=== PATIENT | female | born 1945 | race Caucasian/White ===

== ENCOUNTER 2017-05-19 06:56 | Day surgery (SDC) | payer MEDICARE, BC, OTHER ==
[~2017-05-19 06:56] MED LIST: KETOROLAC TROMETHAMINE 0.45% 4 DROP/0.4 ML DROPERETTE OS PRN
[2017-05-19] MEDS ORDERED: CHONDR SU A NA/HYALUR INTRAOC KIT (SURGICARE) ONE (07:07)
[2017-05-19] MEDS ORDERED: LIDOCAINE 1% INJ-PF (10 MG/ML) 30 ML SDV ONE (07:07)
[2017-05-19] MEDS ORDERED: EPINEPHRINE INJ/PF 1 MG/1 ML AMPULE ONE (07:07)
[2017-05-19] MEDS ORDERED: TOBRAMYCIN SULFATE/DEXAMETH OPH OINTMENT 3.5 GM ONE (07:07)
[2017-05-19] MEDS ORDERED: MIDAZOLAM 2 MG/2 ML INJ ONE (07:11)
[2017-05-19] MEDS: TETRACAINE HCL 0.5% OPH SOLN 0.6 ML DROPERETTE OS PRN ×3 (07:15→07:55)
[2017-05-19] MEDS: TROPICAMIDE 1% OPH SOLN 3 ML OS PRN ×3 (07:16→07:39)
[2017-05-19] MEDS: CYCLOPENTOLATE 0.2%/PHENYLEPHRINE 1% OPH SOLN 2 ML OS PRN ×3 (07:16→07:39)
[2017-05-19] MEDS: BESIFLOXACIN HCL 0.6% OPH SUSP 5 ML BOTTLE OS PRN ×3 (07:17→08:11)
[2017-05-19] MEDS ORDERED: ONDANSETRON HCL INJ/PF 4 MG/2 ML SDV ONE (07:42)
== END 2017-05-19 08:50 | disposition home or self-care (01) ==
LOC: SC 06:56
PROVIDERS: ATTEND Ophthalmology
PROC: 08RK3JZ Replacement of Left Lens with Synthetic Substitute, Percutaneous Approach (ICD-10-PCS; principal; 2017-05-19 07:45)
DX: H25.12 Age-related nuclear cataract, left eye (principal); H40.053 Ocular hypertension, bilateral; I10 Essential (primary) hypertension; Z79.82 Long term (current) use of aspirin; Z79.899 Other long term (current) drug therapy
CPT/HCPCS: 66984; V2630; J2250; J3490 ×3; A9270; J0171; J2405; 142

== ENCOUNTER 2017-06-02 10:10 | Day surgery (SDC) | payer OTHER ==
[~2017-06-02 10:10] MED LIST changes: +KETOROLAC TROMETHAMINE 0.45% 4 DROP/0.4 ML DROPERETTE OD PRN; -KETOROLAC TROMETHAMINE 0.45% 4 DROP/0.4 ML DROPERETTE OS PRN
[2017-06-02] MEDS ORDERED: LIDOCAINE 1% INJ-PF (10 MG/ML) 30 ML SDV ONE (10:13)
[2017-06-02] MEDS ORDERED: CHONDR SU A NA/HYALUR INTRAOC KIT (SURGICARE) ONE (10:13)
[2017-06-02] MEDS ORDERED: EPINEPHRINE INJ/PF 1 MG/1 ML AMPULE ONE (10:13)
[2017-06-02] MEDS ORDERED: TOBRAMYCIN SULFATE/DEXAMETH OPH OINTMENT 3.5 GM ONE (10:13)
[2017-06-02] MEDS: TROPICAMIDE 1% OPH SOLN 3 ML OD PRN ×3 (10:31→10:49)
[2017-06-02] MEDS: CYCLOPENTOLATE 0.2%/PHENYLEPHRINE 1% OPH SOLN 2 ML OD PRN ×3 (10:31→10:49)
[2017-06-02] MEDS: BESIFLOXACIN HCL 0.6% OPH SUSP 5 ML BOTTLE OD PRN ×4 (10:32→11:37)
[2017-06-02] MEDS: TETRACAINE HCL 0.5% OPH SOLN 0.6 ML DROPERETTE OD PRN ×3 (10:33→11:19)
[2017-06-02] MEDS ORDERED: MIDAZOLAM 2 MG/2 ML INJ ONE (11:13)
== END 2017-06-02 12:02 | disposition home or self-care (01) ==
LOC: SC 10:10
PROVIDERS: ATTEND Ophthalmology
PROC: 08RJ3JZ Replacement of Right Lens with Synthetic Substitute, Percutaneous Approach (ICD-10-PCS; principal; 2017-06-02 11:15)
DX: H25.11 Age-related nuclear cataract, right eye (principal); Z98.42 Cataract extraction status, left eye; I10 Essential (primary) hypertension; Z79.82 Long term (current) use of aspirin; Z79.899 Other long term (current) drug therapy
CPT/HCPCS: 66984; V2630; J2250; J3490 ×3; A9270; J0171; 142

== ENCOUNTER → 2017-08-05 | Day surgery (SDC) | payer OTHER ==
[~2017-08-05] MED LIST changes: -KETOROLAC TROMETHAMINE 0.45% 4 DROP/0.4 ML DROPERETTE OD PRN; +LIDOCAINE 2% JELLY 5 ML TUBE ONE
== END ==
LOC: END 08:00
PROVIDERS: ATTEND Surgery
DX: K21.9 Gastro-esophageal reflux disease without esophagitis (principal); K22.0 Achalasia of cardia; Z88.5 Allergy status to narcotic agent

== ENCOUNTER → 2019-02-16 | Outpatient (CLI) | payer OTHER ==
--- NOTE | 2019-02-16 13:37 | RADIOLOGY REPORT (SQ) ---
EXAM DESCRIPTION: MRI LUMBAR SPINE WITHOUT COMPLETED DATE/TIME: 02/16/2019 1:09 pm REASON FOR STUDY: M54.5 LOW BACK PAIN M54.5 LOW BACK PAIN COMPARISON: None. TECHNIQUE: Sagittal and Axial imaging includes T1, T2, STIR and gradient echo sequences. Coronal T2/ HASTE imaging. LIMITATIONS: None. FINDINGS: VISUALIZED UPPER ABDOMEN: Limited evaluation. No acute or suspicious findings suggested. SEGMENTATION: No transitional anatomy. The lowest well-developed disc space is labeled L5-S1. ALIGNMENT: Grade 1 anterolisthesis of L5 over S1 VERTEBRAE: Intact. BONE MARROW: Normal. No marrow replacement or reactive changes. DISC SIGNAL: Disc space loss of height at L5-S1. Diffuse decreased T2 weighted intervertebral disc s ignal. POSTERIOR ELEMENTS: Degenerative spondylolysis bilaterally at L5 HARDWARE: None in the spine. CORD AND CONUS: Normal in size and signal intensity. Conus at the L1 level. SOFT TISSUES: No aortic aneurysm seen. No bulky retroperitoneal adenopathy or mass. No paraspinal mas s or fluid. T11-12: No central or foraminal stenosis. Mild bilateral facet hypertrophy. T12-L1: No central or foraminal stenosis. Mild bilateral facet hypertrophy. L1-L2: No central or foraminal stenosis. Mild bilateral facet hypertrophy. L2-L3: No central or foraminal stenosis. Mild bilateral facet hypertrophy. L3-L4: No central or foraminal stenosis. Mild posterior disc bulging, mild bilateral facet hypertrop hy. L4-L5: No central or foraminal stenosis. Mild left facet hypertrophy L5-S1: Grade 1 anterolisthesis of L5 over S1 related to degenerative spondylolysis best shown on axia l image 26 and sagittal image 8. No central stenosis. Mild bilateral foraminal narrowing without ex iting L5 nerve root impingement. SACRUM: There is a right-sided sacral insufficiency fracture paralleling the right sacral ala. This would be amenable to sacroplasty OTHER: No other significant findings. IMPRESSION: Right-sided sacral insufficiency fracture TECHNICAL DOCUMENTATION: JOB ID: [id number] [employer]- All Rights Reserved Reading location - IP/workstation name: [email or web address]
== END ==
LOC: RAD 12:18
PROVIDERS: ATTEND Physician Assistant
DX: M84.48XA Pathological fracture, other site, initial encounter for fracture (principal); M54.5 Low back pain
CPT/HCPCS: 72148

== ENCOUNTER → 2019-02-24 | Outpatient (CLI) | payer OTHER ==
--- NOTE | 2019-02-24 15:07 | RADIOLOGY REPORT (SQ) ---
EXAM DESCRIPTION: CT CHEST WITHOUT COMPLETED DATE/TIME: 02/24/2019 2:55 pm REASON FOR STUDY: R07.89 OTHER CHEST PAIN R07.89 OTHER CHEST PAIN COMPARISON: None. TECHNIQUE: CT scan performed of the chest without intravenous contrast. Images reviewed with lung, soft tissue and bone windows. Reconstructed coronal and sagittal MPR images reviewed. All images st ored on PACS. All CT scanners at this facility use dose modulation, iterative reconstruction, and/or weight based d osing when appropriate to reduce radiation dose to as low as reasonably achievable (ALARA). [facility]: Dose Right [facility]: CareDose [facility]: Dose Right [facility]: Teradose 4D [facility]: Smart [place] RADIATION DOSE: CT Rad equipment meets quality standard of care and radiation dose reduction techniq ues were employed. CTDIvol: 8.9 mGy. DLP: 351 mGy-cm. mGy. LIMITATIONS: No technical limitations. FINDINGS: LUNGS AND PLEURA: No masses, infiltrates, or pneumothorax. No pleural effusions or pleura l calcifications. HILAR AND MEDIASTINAL STRUCTURES: No identified masses or abnormal nodes. No obvious aneurysm. HEART AND VASCULAR STRUCTURES: No aneurysm. No pericardial effusion. UPPER ABDOMEN: No significant findings. Limited exam. THYROID AND OTHER SOFT TISSUES: No masses. No adenopathy. BONES: No significant finding. HARDWARE: None in the chest. OTHER: No other significant findings. IMPRESSION: NO SIGNIFICANT FINDING ON NON-CONTRASTED CHEST CT. TECHNICAL DOCUMENTATION: JOB ID: [id number] Quality ID # [id number]: Final reports with documentation of one or more dose reduction techniques (e.g., Au tomated exposure control, adjustment of the mA and/or kV according to patient size, use of iterative reconstruction technique) 2010 [employer]- All Rights Reserved Reading location - IP/workstation name: [email or web address]
== END ==
LOC: RAD 14:22
PROVIDERS: ATTEND Physician Assistant
DX: S32.10XS Unspecified fracture of sacrum, sequela (principal); X58.XXXS Exposure to other specified factors, sequela; R07.89 Other chest pain
CPT/HCPCS: 71250

== ENCOUNTER → 2019-03-03 | Outpatient (CLI) | payer OTHER ==
--- NOTE | 2019-03-03 15:43 | WOMENS IMAGING REPORT ---
EXAM DESCRIPTION: BONE DENSITY HIP/SPINE COMPLETED DATE/TIME: 03/03/2019 3:23 pm REASON FOR STUDY: M81.0 BONE DENSITY S32.10XS UNSPECIFIED FRACTURE OF SACRUM, SEQUELA M81.0 AGE-RE LATED OSTEOPOROSIS W/O CURRENT PATHOLOGICAL FRAC COMPARISON: None. TECHNIQUE: Dual-Energy X-ray Absorptiometry (DEXA) of the AP Spine and Hip. LIMITATIONS: None. FINDINGS: LUMBAR SPINE: The bone mineral density (BMD) measured from L1-L4 in the AP projection correlates with a T-score of -2.1, which is osteopenia as defined by the World Health Organization. BMD Change vs Baseline: N/A HIP: The bone mineral density (BMD) measured in the left hip hip correlates with a T-score of -2.0 in the femoral neck, which is osteopenia as defined by the World Health Organization. BMD Change vs Baseline: N/A 10 year Fracture Risk Assessment: Major Osteoporotic Fracture: 12% Hip Fracture: 2.4% IMPRESSION: 1. LUMBAR SPINE WHO CLASSIFICATION: Osteopenia 2. HIP WHO CLASSIFICATION: Osteopenia OVERALL ASSESSMENT: WHO CLASSIFICATION: Osteopenia COMMENT: The World Health Organization defines low BMD as follows: T-score: Normal: Greater than -1.0 Osteopenia: Between -1.0 and -2.5 Osteoporosis: Less than -2.5 without fractures Established osteoporosis: Less than -2.5 with fractures In general, you may wish to consider: Diagnosis Treatment Follow-up DEXA Normal BMD Prevention 2-3 years Osteopenia Prevention/Therapy 1-2 years Osteoporosis Therapy Yearly TECHNICAL DOCUMENTATION: JOB ID: [id number] [employer]- All Rights Reserved Reading location - IP/workstation name: [email or web address]
== END ==
LOC: WI 13:00
PROVIDERS: ATTEND Physician Assistant
DX: S32.10XS Unspecified fracture of sacrum, sequela (principal); M81.0 Age-related osteoporosis without current pathological fracture; R07.89 Other chest pain; X58.XXXS Exposure to other specified factors, sequela
CPT/HCPCS: 77080

== ENCOUNTER → 2019-04-18 | Outpatient (CLI) | payer OTHER ==
--- NOTE | 2019-04-18 17:55 | XCELERA REPORT ---
[address] [facility] [address] Lower Extremity Venous Evaluation Procedure: Color flow and duplex imaging bilaterally of the veins of the lower extremities as well as the Common Femoral veins. Right Sided Venous Evaluation Normal vessel filling wall to wall, compression and augmentation as well as Colour flow down to the infrageniculate veins. Left Sided Venous Evaluation Normal vessel filling wall to wall, compression and augmentation as well as Colour flow down to the infrageniculate veins. Interpretation Summary No duplex evidence of DVT or obstruction in the bilateral lower extremities. Name: ROSEMARIE ANGLIN Age: 73 yrs Gender: Female : 1945 Patient Status: Outpatient Patient Location: Study Date: 04/18/2019 04:45 PM Reason For Study: BLE PAIN Ordering Physician: ASAD PETERSON Performed By: Francia Gill : ASAD PETERSON > Tera Thorpe
== END ==
LOC: SP 16:15
PROVIDERS: ATTEND Physician Assistant
DX: M79.662 Pain in left lower leg (principal); M79.661 Pain in right lower leg
CPT/HCPCS: 93970

== ENCOUNTER → 2019-11-27 | Outpatient (CLI) | payer OTHER ==
--- NOTE | 2019-11-27 14:01 | RADIOLOGY REPORT (SQ) ---
EXAM DESCRIPTION: LUMBAR SPINE 2 VIEWS; L SPINE FLEX/EXT ONLY IMAGES COMPLETED DATE/TIME: 11/27/2019 1:48 pm REASON FOR STUDY: LUMBAR RADICULOPATHY COMPARISON: 11/27/2019 NUMBER OF VIEWS: Four views TECHNIQUE: AP and lateral with flexion or extension radiographic images acquired of the lumbar spine . LIMITATIONS: None. FINDINGS: MINERALIZATION: Decreased. SEGMENTATION: Normal. No transitional anatomy. ALIGNMENT: Grade 1 anterolisthesis of L5 on S1, similar to prior MRI. VERTEBRAE: Maintained height. No fracture or worrisome bone lesion. DISCS: Multilevel degenerative disc disease with disc height loss greatest at L3-4, L4-5 and L5-S1. There is associated multilevel endplate change with mild osteophyte formation. POSTERIOR ELEMENTS: Lower lumbar facet arthropathy with likely pars defects at L5. HARDWARE: Segment within the right sacral ala compatible with sacral plasty. PARASPINAL SOFT TISSUES: Vascular calcifications. PELVIS: Intact as visualized. No fractures or worrisome bone lesions. SI joints intact. OTHER: Anterolisthesis measures approximately 13 mm on flexion and 10 mm on extension. IMPRESSION: 1. No evidence of acute bony abnormality of the lumbar spine. 2. Grade 1-2 anterolisthesis of L5 on S1 which mildly increases on flexion views. 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 3. Multilevel degenerative disc disease with disc height loss and facet arthropathy greatest from L3 -S1. TECHNICAL DOCUMENTATION: JOB ID: [id number] [employer]- All Rights Reserved Reading location - IP/workstation name: [email or web address]
== END ==
LOC: OD 12:54
PROVIDERS: ATTEND Specialist
DX: M54.16 Radiculopathy, lumbar region (principal)
CPT/HCPCS: 72100; 72120